=== PATIENT | male | born 1940 | race Caucasian/White ===

== ENCOUNTER 2023-06-25 06:26 | Day surgery (SDC) | payer OTHER, SELFPAY ==
[2023-06-25] VITALS (7 sets, daily range): BP systolic 107–164; BP diastolic 81–114; BMI 20.7
--- NOTE | 2023-06-25 14:09 | PTCARENOTE ---
Adin was ready for discharge at 1320, waiting for to pull around the car. Sat into chair beside the bed. while waiting for discharge wheelchair, he got up walked to the end of the bed, then 'walked backwards' 'tripped on himself ' stated by
pt and fell on his buttocks to the floor witnessed by PCT staff that he did not hit his head . Staff assisted him to immediately standing and appeared to be steady to ambulate. Dr Johnson made aware, no new orders, baseline neuro status. dnies pain
other than sore buttocks vss 144/87, HR 58, pox 98%. Discharge to home with via w/c, and encouraged to make sure due to sedation today that he ambulated with assistance due to anesthesia given today. verbalized understanding. Chadwick Royal
RN
== END 2023-06-25 13:45 | disposition home or self-care (01) ==
LOC: SDS 06:26
PROVIDERS: ATTENDING PHYSICIAN Internal Medicine Gastroenterology
DX: K86.89 Other specified diseases of pancreas (principal); R93.5 Abnormal findings on diagnostic imaging of other abdominal regions, including retroperitoneum; K80.20 Calculus of gallbladder without cholecystitis without obstruction; Z85.51 Personal history of malignant neoplasm of bladder; Z85.810 Personal history of malignant neoplasm of tongue
CPT/HCPCS: 43242; 88172; 88173; 88305; 88177